=== PATIENT | male | born 1940 | race Caucasian/White ===

== ENCOUNTER → 2017-10-24 | Outpatient (CLI) | payer MEDICARE ==
[~2017-10-24] MED LIST: ASPI-555 PO; ATOR-2 PO; BETA1TAB18 PO; CLOP75TA32 PO; FENO145T37 PO; FISH1CAP63 PO; FOLI1TAB85 PO; LEVO75TA10 PO; METF500T6 PO; METO-409 PO; SERT100T12 PO; iron PO
== END | disposition home or self-care (01) ==
LOC: SHCH 13:27
PROVIDERS: ATTEND Internal Medicine Cardiovascular Disease
DX: I10 Essential (primary) hypertension (principal); I48.91 Unspecified atrial fibrillation; R94.31 Abnormal electrocardiogram [ECG] [EKG]
CPT/HCPCS: 93306

== ENCOUNTER → 2018-05-17 | Outpatient (CLI) | payer MEDICARE ==
[~2018-05-17] MED LIST changes: +METF-444 PO; -METF500T6 PO
== END | disposition home or self-care (01) ==
LOC: RAH 10:49
PROVIDERS: ATTEND Family Medicine
DX: R13.10 Dysphagia, unspecified (principal); I25.10 Atherosclerotic heart disease of native coronary artery without angina pectoris; I10 Essential (primary) hypertension; E11.9 Type 2 diabetes mellitus without complications
CPT/HCPCS: G8996; G8997; G8998; 74230; 92611

== ENCOUNTER → 2019-02-19 | Outpatient (CLI) | payer MEDICARE | END | disposition home or self-care (01) | LOC: RAH 16:35 | PROVIDERS: ATTEND Internal Medicine Gastroenterology | DX: R05 Cough (principal); Z95.0 Presence of cardiac pacemaker | CPT/HCPCS: 71046 ==

== ENCOUNTER 2021-08-24 06:34 | Day surgery (SDC) | payer MEDICARE ==
[2021-08-19 14:15] LABS: BASOPHILS % (AUTO) 0.6 % (0.0-5.0); EOSINOPHILS % (AUTO) 4.3 % (0.0-8.0); HEMATOCRIT 40.9 % (42-54); LYMPHOCYTES % (AUTO) 20.3 % (21.0-51.0); MONOCYTES % (AUTO) 6.9 % (3.0-13.0); NEUTROPHILS % (AUTO) 66.9 % (40.0-77.0); PLATELET COUNT (AUTO) 161 K/uL (130-400); RED BLOOD CELL COUNT(AUTO) 4.35 MIL/uL (4.50-6.20); RED CELL DISTRIBUTION WIDTH 13.3 % (11.0-15.5); WHITE BLOOD COUNT (AUTO) 7.7 K/uL (4.8-10.8)
[2021-08-19 14:22] LABS: CREATININE 1.4 mg/dL (0.5-1.5); POTASSIUM 4.5 mmol/L (3.5-5.1)
[2021-08-19 14:32] LABS: INR 1.13 (0.85-1.15); PROTHROMBIN TIME 12.2 SEC (9.6-11.6)
[2021-08-19 14:33] LABS: PARTIAL THROMBOPLASTIN TIME 27.8 SEC (26.3-35.5)
[2021-08-23 14:05] VITALS: BP 111/61
[2021-08-24] VITALS (16 sets, daily range): BP systolic 125–154; BP diastolic 69–107
[~2021-08-24] VITALS: Ht 188 cm; Wt 95.3 kg
[~2021-08-24 06:34] MED LIST changes: -ASPI-555 PO; -BETA1TAB18 PO; -CLOP75TA32 PO; -FENO145T37 PO; -FOLI1TAB85 PO; +IRON PO; +METO-391 PO; -METO-409 PO; +PIOG30TA70 PO; +RIVA20TA PO; +SERT-440 PO; -SERT100T12 PO; +VIT1CAPS28 PO; -iron PO
[2021-08-24] MEDS ORDERED: 0.9%NACL 1000ML 1,000 ML IV ONE (06:48)
[2021-08-24] MEDS ORDERED: EPINEPHRINE 1 MG/ML 30ML VIAL IJ ONE (06:59)
[2021-08-24] MEDS ORDERED: PROPOFOL 10 MG/ML 20ML VIAL IV ONE (07:35)
[2021-08-24] MEDS ORDERED: DEXAMETHASONE SOD PHOSPHATE 10MG/ML 1ML VIAL ONE (07:35)
[2021-08-24] MEDS ORDERED: SUCCINYLCHOLINE 200MG/10ML SYR ONE (07:35)
[2021-08-24] MEDS ORDERED: GLYCOPYRROLATE 1 MG/5 ML SYRINGE ONE (07:35)
[2021-08-24] MEDS ORDERED: NEOSTIGMINE 5MG/5ML SYR IV ONE (07:35)
[2021-08-24] MEDS ORDERED: LIDOCAINE PF 100MG/5ML (2%) SYRINGE 5ML ONE (07:35)
[2021-08-24] MEDS ORDERED: MEPERIDINE-PF 25 MG/ML SYG ONE (08:00)
== END 2021-08-24 09:30 | disposition home or self-care (01) ==
LOC: DAH 06:34
PROVIDERS: ATTEND Otolaryngology Plastic Surgery within the Head & Neck
DX: R49.0 Dysphonia (principal); Z20.822 Contact with and (suspected) exposure to COVID-19; R59.9 Enlarged lymph nodes, unspecified; K14.8 Other diseases of tongue; E03.9 Hypothyroidism, unspecified; E11.9 Type 2 diabetes mellitus without complications; E78.5 Hyperlipidemia, unspecified; I25.10 Atherosclerotic heart disease of native coronary artery without angina pectoris; I45.10 Unspecified right bundle-branch block; I48.91 Unspecified atrial fibrillation; Z79.84 Long term (current) use of oral hypoglycemic drugs; Z98.890 Other specified postprocedural states; Z79.899 Other long term (current) drug therapy; Z79.01 Long term (current) use of anticoagulants; Z95.5 Presence of coronary angioplasty implant and graft; Z95.0 Presence of cardiac pacemaker
CPT/HCPCS: 31536; 36415; 80048; 82948 ×2; 85025; 85610; 85730; 87635; 93005; A4215; A4221; A4222; A4223; A4663; A6260; C9803; J0171; J0330; J1100; J2001; J2175; J2704; J2710; J3490; J7030

== ENCOUNTER → 2022-03-08 | Outpatient (CLI) | payer MEDICARE ==
[~2022-03-08] MED LIST changes: +REGADENOSON 0.4 MG/5 ML PF SYG IVP SCH
== END | disposition home or self-care (01) ==
LOC: SHCH 07:33
PROVIDERS: ATTEND Internal Medicine Cardiovascular Disease
DX: I48.91 Unspecified atrial fibrillation (principal); I20.9 Angina pectoris, unspecified; R06.09 Other forms of dyspnea; I51.7 Cardiomegaly
CPT/HCPCS: 78452; 96374; 93017; J2785; A9500 ×2